=== PATIENT | male | born 1940 | race Caucasian/White ===

== ENCOUNTER 2019-04-29 17:11 | Inpatient (IN) | payer MEDICARE ==
[~2019-04-29] VITALS: Ht 182.9 cm; Wt 72.1 kg
[2019-04-29] MEDS ORDERED: LITHIUM (17:22)
[2019-04-29] MEDS ORDERED: LORAZEPAM (17:22)
[2019-04-29] MEDS ORDERED: DEPAKOTE (17:22)
--- NOTE | 2019-04-29 17:32 | NUR ---
security at bedide for one to one observation.
--- NOTE | 2019-04-29 18:08 | NUR ---
pt refuesed dinner.
--- NOTE | 2019-04-29 18:09 | NUR ---
pt transfered to mhu in stable condition.
--- NOTE | 2019-04-29 18:16 | NUR ---
PT ARRIVE TO UNIT AT THIS TIME ON GURNEY ACCOMPANIED BY ER NURSE. NOTED QUITE MANIC, HYPERVERBAL, RAMBLING, WITH FLIGHT OF IDEAS. PT SPEECH IS PRESSURED AND TANGENTIAL. EASILY IRRITABLE AND AGITATED. REQUIRES FREQUENT REDIRECTION. DENIES PAIN OR DISCOMFORT.
--- NOTE | 2019-04-29 18:20 | NUR ---
CALLED AND SPOKE TO PT'S WITH PT'S PERMISSION. PT CONTINUES TO BE HIGHLY MANIC AND HYPERVERBAL. VERY DISORGANIZED. PT'S STATED THAT HE IS USED TO HEAVY MEDICATIONS, AND HE HAS A HISTORY OF IM MEDICATIONS, AND TO NOT BE SURPRISED IF HIGH DOSES "BARELY TOUCH HIM" DUE TO BUILDING A HIGH TOLERANCE OVER TIME.
[2019-04-29] MEDS ORDERED: MAGNESIUM HYDROXIDE 30 ML LIQUID UDC PO PRN (18:30)
[2019-04-29] MEDS ORDERED: BLOOD SUGAR DIAGNOSTIC 1 EACH STRIP VI ONE (18:30)
[2019-04-29] MEDS ORDERED: ACETAMINOPHEN 325 MG TABLET PO PRN (18:30)
[2019-04-29] MEDS ORDERED: TEMAZEPAM 7.5 MG CAPSULE PO PRN (18:30)
[2019-04-29] MEDS ORDERED: LORAZEPAM 0.5 MG TABLET PO PRN (18:30)
[2019-04-29] MEDS ORDERED: MAG HYDROX/AL HYDROX/SIMETH 30 ML LIQUID UDC PO PRN (18:30)
[2019-04-29 18:35] VITALS: BP 126/77
[2019-04-29 20:39] VITALS: BP 130/75
--- NOTE | 2019-04-29 22:52 | NUR ---
ADMISSION NOTE:PT IS ON 5150 FOR GD.PT WAS RAMBLING AND HARASSING EMPLOYEES AND CUSTOMERS @ A [facility] THEN REFUSED TO LEAVE.HE WAS RIPPING HIS OWN HUNDRED DOLLAR BILLS IN PIECES.HE IS DIAGNOSED BIPOLAR DISODER AND NOT TAKING HIS PRESCRIBED LITHIUM OR DEPAKOTE.HE TALKED AND ACTED IRRATIONALLY AND APPEARED TO BE UNABLE TO MAKE DECISIONS TO CARE FOR HIMSELF.UPONADMISSION,PT WAS ANXIOUS,RESTLESS,SUSPICIOUS,PARANOID, HYPERVERBAL,ANGRY.NEEDY,DEMANDING POOR CONCENTRATION,LABILE AND ATTENTION SEEKING.HE REFUSED TO SIGN ALL ADMIT PAPERS AND/OR TO ANSWER THE QUESTIONS.HE IS ANGRY WITH HIS AND WANTS TO DIVORCE HER,THOUGHT SENT HIM HERE..ACCORDING TO PT,HE CAN'T SEE WELL WITHOUT EYEGLASSES AND SLEEP APNEA WHICH ALL HE NEED IS JUST 2 PILLOWS TO KEEP HEAD UP AND,NO NEED FOR THE MACHINE DENIES PAIN/SI/HI/A&V H.WILL CONTINUE TO MONITOR
[2019-04-30 07:50] VITALS: BP 113/63
[2019-04-30] MEDS ORDERED: HALOPERIDOL LACTATE 5 MG/1 ML VIAL IM ONE (11:45)
[2019-04-30] MEDS ORDERED: diphenhydrAMINE 50 MG/1 ML VIAL IM ONE (11:45)
[2019-04-30] MEDS ORDERED: LORAZEPAM 2 MG/1 ML VIAL IM ONE (11:45)
--- NOTE | 2019-04-30 11:50 | NUR ---
PT NOTED TO BE HIGHLY AGITATED, RESTLESS, AND IRRITABLE WHILE PSYCHIATRIST PERFORMING HIS ASSESSMENT. PT IS EXTREMELY MANIC, HYPERVERBAL, AND UNREDIRECTABLE. INTRUSIVE WITH PSYCHIATRIST, ESCALATING AND RAISING HIS VOICE, POSTURING TOWARDS STAFF. DR. TOTH ORDERED IM MEDICATIONS. ORDERED AND WILL CARRY OUT. SECURITY CALLED AND IS IN UNIT.
[2019-04-30] MEDS ORDERED: TEMAZEPAM 15 MG CAPSULE PO PRN (12:45)
[2019-04-30] MEDS ORDERED: LORAZEPAM 1 MG TABLET PO PRN (12:45)
[2019-04-30] MEDS ORDERED: TEMAZEPAM 7.5 MG CAPSULE PO PRN (12:45)
[2019-04-30] MEDS: OLANZAPINE ZYDIS 5 MG TAB.RAPDIS PO SCH ×2 (13:00→16:41)
[2019-04-30] MEDS ORDERED: LORAZEPAM 0.5 MG TABLET PO PRN (14:30)
--- NOTE | 2019-04-30 15:26 | NUR ---
PT CONTINUES TO BE HIGHLY MANIC, INTRUSIVE, GRANDIOSE AND DELUSIONAL. STATES HE HAS 10 MILLION DOLLARS TO GIVE AWAY HE PLEASES, AND HE PAYS HIS BUTTONHOLE FACER $2000/HR TO MARILYNN EVERYBODY. PT EXHIBITING BIZARRE BEHAVIORS, WHEN ASKED QUESTIONS, PT DOES NOT RESPOND AND WRITES ANSWERS ON A PIECE OF PAPER. PT QUITE FIXATED AT STAFF AT THIS TIME, FOLLOWS NURSES AROUND, ASKING STAFF MEMBERS FOR THEIR NAMES, THREATENING TO MARILYNN AND "SUBPOENA" STAFF. POOR BOUNDARIES NOTED, FREQUENTLY ATTEMPTS TO OPEN NURSES STATION DOOR AND COME IN. PT FREQUENTLY AT NURSES STATION, MAKING MULTIPLE ARBITRARY REQUESTS. PT HAVING HALLUCINATIONS AT THIS TIME, STATING A WOMAN'S HAND IS TOUCHING HIM MAKING HIM WANT TO THROW UP AND MAKING HIM FEEL WEAK, FREQUENTLY TALKING TO HIMSELF, RAMBLING NONSENSICAL.
--- NOTE | 2019-04-30 16:17 | NUR ---
PT REQUESTS PRODUCT DESIGN SPECIALIST TO CALL HIS MAGALI AND SPEAK TO HER. PRODUCT DESIGN SPECIALIST CALLED PT'S AND SPOKE TO HER. SHE POLITELY DENIES REQUEST TO SPEAK TO PT, DUE TO FEAR THAT SHE WILL AGITATE HIM MORE AT THIS TIME.
--- NOTE | 2019-04-30 16:44 | NUR ---
PT REFUSED ALL PO MEDICATIONS TODAY. STATED "I'M NOT TAKING SHIT FROM ANYBODY. YOU WANT TO GIVE ME MEDICATIONS? GIVE IT TO ME IN A SHOT IN MY ASS." PT REQUESTED ORACLE FUSION CONSULTANT CALL HIS FOR HIM. PT OVERHEARD TALKING TO HIS IN THE HALLWAY, IN QUITE A DEMEANING MANNER, MAKING STATEMENTS SUCH "YOU CHICKENSHIT" "YOU'RE PATHETIC" AND "SHUT UP WHEN I'M TALKING TO YOU."
[2019-04-30 16:46] VITALS: BP 105/64
--- NOTE | 2019-04-30 18:06 | NUR ---
PT NOW REQUESTING STAFF TO "NOT SPEAK TO MY UNDER ANY CIRCUMSTANCES. SHE JUST WANTS TO TALK ABOUT MY HEALTH AND MEDICATIONS, I JUST WANT TO TALK ABOUT LOVE AND CARS." STAFF WITH RESPECT PT'S DECISION AT THIS TIME.
[2019-04-30 20:16] VITALS: BP 98/55
[2019-05-01 07:30] VITALS: BP 106/59
[2019-05-01] MEDS ORDERED: HALOPERIDOL DECANOATE 50 MG/1 ML AMPUL IM ONE (07:30)
[2019-05-01] MEDS: OLANZAPINE ZYDIS 5 MG TAB.RAPDIS PO SCH ×3 (08:10→17:00)
--- NOTE | 2019-05-01 09:00 | NUR ---
Ativan 2 mg as prn ordered, patient refused to take it.
[2019-05-01] MEDS ORDERED: LORAZEPAM 2 MG/1 ML VIAL IM ONE (09:15)
[2019-05-01] MEDS ORDERED: diphenhydrAMINE 50 MG/1 ML VIAL IM ONE (09:15)
[2019-05-01] MEDS ORDERED: HALOPERIDOL LACTATE 5 MG/1 ML VIAL IM ONE (09:15)
--- NOTE | 2019-05-01 09:20 | NUR ---
PATIENT IS INTRUSIVE INCOHERENT ,UNABLE TO REDIRECT , MANIC AND HYPERVERBAL. REFUSED TO TAKE AM MEDICATION . BECOME HIGHLY AGITATED IRRITABLE ESCALATING AND RAISING VOICE ,DR. TOTH MADE AWARE AMD IM MEDICATION ORDERED.
--- NOTE | 2019-05-01 14:03 | NUR ---
GPS: Nursing Notes: Thought Disorder: Patient constantly verbally abusing staff, using profanities toward staff, "Fuck you.. Ismael head, stupid, bastard... Chicken shit...", constantly invading staff personal space, blocking the nursing station door, bumping into staff shoulder, hyperverbal, argumentative, manipulative, verbal abusive toward the psychiatrist, redirected, but resistant with nursing care, unable to formulate a viable plan for self care, "Chicken shit... I have a thousand dollar gum dipper... I am a gum dipper... You are fuck...", continue with treatment plan.
[2019-05-01 15:40] VITALS: BP 110/62
[2019-05-01 20:00] VITALS: BP 96/53
[2019-05-01] MEDS: TEMAZEPAM 15 MG CAPSULE PO PRN ×2 (22:12→23:14)
[2019-05-02 07:30] VITALS: BP 110/75
[2019-05-02] MEDS: OLANZAPINE ZYDIS 5 MG TAB.RAPDIS PO SCH ×3 (08:40→17:05)
[2019-05-02] MEDS: LORAZEPAM 1 MG TABLET PO PRN (13:26)
--- NOTE | 2019-05-02 15:03 | NUR ---
Initial discharge plan Patient currently resides at home with his , Christa [[address] [place] [address] ; [phone]]. Per patient, he would like to return home. Per , she would like patient to return home i a stable condition. Per 's request, oncology social work will refer patient to outpatient psychiatrist for continuing treatment and follow up. conditioning room worker will continue to work with patient, family, and MD to ensure a safe and proper discharge plan.
[2019-05-02 15:10] VITALS: BP 105/61
[2019-05-02 19:47] VITALS: BP 112/65
[2019-05-02] MEDS: TEMAZEPAM 15 MG CAPSULE PO PRN ×2 (21:09→23:20)
--- NOTE | 2019-05-03 05:41 | NUR ---
Patient requested 2 sleeping pills last night. Patient slept 8.30 hours of sleep, and is still asleep. No distress noted during the night.
[2019-05-03 07:30] VITALS: BP 135/71
[2019-05-03] MEDS: OLANZAPINE ZYDIS 5 MG TAB.RAPDIS PO SCH ×3 (08:19→17:00)
[2019-05-03] MEDS ORDERED: diphenhydrAMINE 50 MG/1 ML VIAL IV PRN (12:15)
[2019-05-03] MEDS ORDERED: HALOPERIDOL LACTATE 5 MG/1 ML VIAL IM PRN (12:15)
[2019-05-03] MEDS ORDERED: LORAZEPAM 2 MG/1 ML VIAL IV ONE ×2 (12:15→14:45)
[2019-05-03] MEDS ORDERED: LORAZEPAM 2 MG/1 ML VIAL IV PRN ×2 (12:15→14:45)
--- NOTE | 2019-05-03 12:21 | NUR ---
At this time patient restless agitated, screaming not following commands.
--- NOTE | 2019-05-03 12:34 | NUR ---
Patient medicated as ordered, aggressive, agitated restless.
--- NOTE | 2019-05-03 12:40 | NUR ---
EMERGENCY MEDICATION PATIENT STARTED TO GET HYPERVERBAL, MANIC, AGITATED, STRIKING OUT STAFF, CALLED FOR MEDICATION, PATIENT CONTINUOUSLY THREATENED THE STAFF, WILL CONTINUE TO MONITOR
--- NOTE | 2019-05-03 13:04 | NUR ---
patient remains restless agitated walking to nurses station but mary at this time. Will continue to monitor.
--- NOTE | 2019-05-03 14:26 | NUR ---
Patient remains restless and agitated, aggressive and threatening staff, notified.
[2019-05-03] MEDS ORDERED: OLANZAPINE 10 MG VIAL IM ONE (14:45)
[2019-05-03 16:00] VITALS: BP 114/83
[2019-05-03 20:00] VITALS: BP 90/50
--- NOTE | 2019-05-03 21:23 | NUR ---
Received patient in Chika chair. Calm, oriented to name. b/p noted in the 90s secondary to receiving 2 IM injections on the day shift. Patient is awake, and asking to go to bed. No hostile or aggressive behavior shown. Patient assisted to bathroom, then assisted to bed. Bed alarm on for patients safety. Continuing to monitor during the night. No distress noted at this time.
[2019-05-04] MEDS: TEMAZEPAM 15 MG CAPSULE PO PRN ×2 (00:21→21:06)
--- NOTE | 2019-05-04 00:24 | NUR ---
Patients up in rivera asking for a sleeping pill. Re check of VS are 130/61. Patients gait steady , alert and oriented. Sleeping pill given per request. Continuing to monitor for safety.
--- NOTE | 2019-05-04 05:36 | NUR ---
Patient slept 6.3 hours, and is still asleep. Got up a couple of times to void, then back to bed. Gait became increasingly more steady. No aggression or distress noted during the night. Continuing to monitor for safety.
[2019-05-04 07:30] VITALS: BP 110/65
--- NOTE | 2019-05-04 07:57 | NUR ---
Patient is the chair, calm and cooperative, responds to conversations appropriate. Cont. to monitor and safety
[2019-05-04] MEDS: OLANZAPINE ZYDIS 5 MG TAB.RAPDIS PO SCH ×3 (08:58→17:00)
--- NOTE | 2019-05-04 08:59 | NUR ---
Patient refused am med, stated: "you can give me a shot if u not nice, I dont trust doctors or nurses , they get me worse". Patient is hyperverbal.
--- NOTE | 2019-05-04 15:59 | NUR ---
Patient is still not complient with medications, asked to call patient advocate line and I provided the phone number and called it for him. Patient has delusions and stated that he has envelope with 7000 dollars in it. States that the money better be in there. Also patient is very unhappy and angry because his wants to divorce him. Patient is hyperverbal.
[2019-05-04 16:00] VITALS: BP 126/72
--- NOTE | 2019-05-04 19:39 | NUR ---
PATIENT IS STILL DELUSIONAL , NO COMPLIANT WITH MEDICATIONS. SAFETY MAINTAINED THIS SHIFT
--- NOTE | 2019-05-04 20:00 | NUR ---
Patient received into care in room sitting on bed. Patient is alert/oriented x3 and has no complaints of pain. Patient requested nurse to come back later, as he was talking on the phone and it was a "private conversation." Will continue to monitor.
[2019-05-04 20:35] VITALS: BP 128/66
--- NOTE | 2019-05-04 21:00 | NUR ---
Patient requested Restoril for sleep. Nurse provided requested prescribed medication and patient took it. Patient stated that if the sleeping pill didn't work, he would like the "two pills" that they gave him the other night. Nurse said ok.
--- NOTE | 2019-05-04 22:35 | NUR ---
Patient asked nurse for the additional medication to help him sleep. Nurse advised will wait until 11pm. Patient said okay.
--- NOTE | 2019-05-04 22:55 | NUR ---
Nurse provided patient prescribed lorazepam to assist patient in sleeping but patient refused stating that he had received an additional Restoril the other night when the first one didn't work. Nurse advised unable to give an additional Restoril. Patient refused prescribed lorazepam. Nurse wasted lorazepam with rn charge.
[2019-05-04] MEDS: LORAZEPAM 1 MG TABLET PO PRN (22:58)
--- NOTE | 2019-05-05 00:40 | NUR ---
Patient is requesting the lorazepam now after previously refusing. Patient is provided requested lorazepam and took the medication orally, as prescribed.
[2019-05-05] MEDS ORDERED: LORAZEPAM 2 MG/1 ML VIAL IM ONE (01:15)
[2019-05-05] MEDS ORDERED: diphenhydrAMINE 50 MG/1 ML VIAL IM ONE (01:15)
[2019-05-05] MEDS ORDERED: HALOPERIDOL LACTATE 5 MG/1 ML VIAL IM ONE (01:15)
[2019-05-05] MEDS ORDERED: HALOPERIDOL DECANOATE 50 MG/1 ML AMPUL IM ONE ×2 (01:15→14:00)
--- NOTE | 2019-05-05 01:40 | NUR ---
Patient is increasingly agitated, verbally combative, and attempts to provide a quiet environment in patient's room have been unsuccessful as patient in uncooperative and is not open to redirection. Order for one time IM haloperidol 10mg/lorazepam 2mg/diphenhydramin 50 received and given to patient.
--- NOTE | 2019-05-05 02:15 | NUR ---
Patient is asleep in bed, resting comfortably. There are no s/s of adverse side effects related to IM Haldol/Ativan/Benadryl noted or observed. Will continue to monitor.
--- NOTE | 2019-05-05 05:48 | NUR ---
Patient is sleeping in bed comfortably. All prescribed medications were tolerated well by patient and patient has had no adverse side effects to prescribed medications this shift. All safety and fall precaution measures remain in place.
[2019-05-05] MEDS: OLANZAPINE ZYDIS 5 MG TAB.RAPDIS PO SCH ×3 (09:00→17:00)
--- NOTE | 2019-05-05 20:00 | NUR ---
RECEIVED PATIENT IN HIS ROOM IN BED. HE IS NOTED AWAKE A/O X 2. ABLE TO AMBULATE WITH STEADY GAIT AND ABLE TO MAKE HIS NEEDS KNOWN. PT NOTED HYPERVERBAL, WITH FLIGHT OF IDEAS, TANGENTAL, ARGUMENTATIVE, GRANDIOSE DELUSIONS AND EASILY IRRITABLE. PATIENT STATED, "MY WANTS TO DIVORCE ME, HE WANTS TO SELL THE HOUSE FOR 1/2 A MILLION." HE ALSO STATES, "I AM A VERY SMART PERSON". PT NOTED WITH BRIGHT AFFECT, LABILE. HE IS REASSURED FOR HIS SAFETY. SAFETY AND FALL PRECAUTION IN PLACE. V/S STABLE AT THIS TIME. WILL CONTINUE TO MONITOR.
[2019-05-05 20:39] VITALS: BP 120/64
[2019-05-05] MEDS: TEMAZEPAM 15 MG CAPSULE PO PRN ×2 (21:51→23:02)
--- NOTE | 2019-05-05 21:54 | NUR ---
PATIENT REQUESTED "SLEEPING PILL" TEMAZEPAM 15MG PO PRN WAS GIVEN. WILL CONTINUE TO MONITOR.
[2019-05-06] MEDS: OLANZAPINE ZYDIS 5 MG TAB.RAPDIS PO SCH ×3 (08:20→17:00)
[2019-05-06] MEDS ORDERED: chlorproMAZINE 50 MG/2 ML AMPUL IM ONE (08:30)
--- NOTE | 2019-05-06 09:39 | NUR ---
EMERGENCY MEDICATION PATIENT UNSTEADY AMBULATORY, UNABLE TO REDIRECT, MANIC, HYPERVERBAL, GRANDIOSE, VERBALLY ABUSIVE, SEEN ON ANOTHER PATIENTS BED, PATIENT REFUSE TO GO TO HIS BED, ARGUES WITH STAFF, PATIENT REFUSED HIS ORAL MEDICATION AND VERBALIZES THAT HE DOES NOT BELIEVE WITH PSYCHIATRIST AND WONT TAKE ANY MEDICATION, CALLED AND SPOKE WITH PSYCHIATRIST , ORDERS MADE PRN MEDICINE GIVEN ORDERED,
--- NOTE | 2019-05-06 09:44 | NUR ---
PATIENT WAS ON HIS BED, STILL HYPER AND MANIC EVEN AFTER HIS EMERGENCY MEDICINE, ASK MD FOR SITTER, PATIENT REFUSED TO GO TO HIS BED, STEPPED AWAY FROM PATIENT BED ALARM WAS ON, PATIENT WAS FOUND LYING ON FLOOR, DENIES PAIN , PATIENT STILL MANIC, UPON ASSESSMENT NOTED BLOOD ON HIS HEAD AND SEEN 1CM LACERATION, PATIENT WAS SAFELY TRANSFERRED ON JAYA CHAIR, SEEN BY DR. MILLER, AND DR. OSORIO, CT SCAN WAS ORDERED AND 1;1 SITTER FOR SAFETY WILL CONTINUE MONITOR
--- NOTE | 2019-05-06 09:45 | NUR ---
1:[address] Booker. Nursing electrical prospecting supervisor aware. States she will attempt to find appropriate staffing.
[2019-05-06 13:00] VITALS: BP 144/73
--- NOTE | 2019-05-06 13:58 | NUR ---
PATIENT LAY DOWN ON THE FLOOR, ASK TO GET UP AND GO BACK TO BED, PATIENT REFUSE, HYPERVERBAL, ATTENTIONN SEEKING , NEEDY UNABLE TO REDIRECT, CALLED AND SPOKE WITH SPACER TYPE BAR AND SEGMENT ABOUT 1:1 SITTER, SPACER TYPE BAR AND SEGMENT TIAGO SAYS THE SITTER WILL COME AT 3PM, PATIENT WAS LET TO STAY ON THE FLOOR WITH SUPERVISION
--- NOTE | 2019-05-06 14:19 | NUR ---
PATIENT RETURNED TO HIS BED, THROWING HIS FOOD, MILK, BANANA ON THE FLOOR, PATIENT BEEN NEEDY AND ATTENTION SEEKING, HYPERVERBAL , VERBALLY AGGRESIVE, MANIC STILL WAITING FOR 1:1 SITTER
--- NOTE | 2019-05-06 15:30 | NUR ---
PT NOTED TO BE CONTINUOUSLY THROWING HIMSELF ON THE FLOOR, ROLLING AROUND AND CRAWLING ON THE FLOOR. MANIC BEHAVIOR, ATTENTION SEEKING, HYPERVERBAL, VERBALLY ABUSIVE. 1:1 SITTER WITH PT AT THIS TIME. PT STATES STAFF IS NOT GIVING HIM WATER, BUT WHEN GIVING PT A BOTTLE OF WATER, PT THROWS IT AT NURSES REPEATEDLY OR OPENS UP CAP AND SPILLS IT ON THE FLOOR. DIFFICULT TO MANAGE AT THIS TIME. REFUSES TO GO BACK TO BED. STATES "I CAN LAY ON THE FLOOR IF I GOD DAMN PLEASE, AND IF YOU DON'T LIKE, YOU CAN GO TO HELL" PROVIDED PILLOW FOR PT AT THIS TIME.
--- NOTE | 2019-05-06 15:39 | NUR ---
ASSISTED TO BED WITH 4 PERSON ASSIST.
--- NOTE | 2019-05-06 20:00 | NUR ---
RECEIVED PATIENT IN BED. HE IS NOTED AWAKE A/O X 2. HE IS NOTED TAKING TO HIMSELF, ARGUMENTATIVE, EVASIVE, SARCASTIC, GRANDIOSE DELUSION, UPON INTERVIEW, HE STATES, "I HAVE A VERY HIGH IQ". HE ALSO STATES, "I AM NOT BIPOLAR". HE IS NOTED SUSPICIOUS. FOOD WAS OFFERED; HOWEVER, HOWEVER, HE REFUSED, HE STATED, "I AM NOT GOING TO EAT UNTIL MY COURT HEARING". HOWEVER, PATIENT, AGREED TO DRINK WATER. HE IS NOW ON 1:1 SUPERVISION FOR SAFETY, PATIENT UNABLE TO CFS. SAFETY AND FALL PRECAUTION IN PLACE. PATIENT IS REASSURED FOR HIS SAFETY. V/S STABLE AT THIS TIME. WILL CONTINUE TO MONITOR.
[2019-05-06 20:15] VITALS: BP 134/74
--- NOTE | 2019-05-06 21:25 | NUR ---
TEMAZEPAM 15MG PO PRN WAS GIVEN PER PATIENT REQUEST AND NURSING ASSESSMENT.
[2019-05-06] MEDS: TEMAZEPAM 15 MG CAPSULE PO PRN ×2 (21:26→23:32)
[2019-05-07] MEDS ORDERED: chlorproMAZINE 50 MG/2 ML AMPUL IM STA (01:53)
[2019-05-07] MEDS ORDERED: chlorproMAZINE 50 MG/2 ML AMPUL ONE (02:14)
--- NOTE | 2019-05-07 02:25 | NUR ---
CHEMICAL RESTRAINS: PATIENT NOTED HYPERVERBAL, RAPID SPEECH, PACING NERVOUSLY, CONFRONTATIVE, DELUSIONAL, YELLING, UNCOOPERATIVE, UNABLE TO BE REDEIRECTED AND UNABLE TO CFS. DR OSORIO WAS NOTIFY AND NEW TELEPHONE ORDER OBTAINED TO ADMINISTER THORAZINE 100MG IM ONE TIME ORDER. ORDER NOTED AND CARRIED OUT. WILL CONTINUE TO MONITOR.
--- NOTE | 2019-05-07 03:25 | NUR ---
PATIENT NOTED IN BED, LESS ANXIOUS, LESS AGITATED; HOWEVER, HE CONTINUE TALKING TO HIMSELF AND UNABLE TO CFS. SITTER AT BEDSIDE; PT WILL CONTINUE ON 1:1 SUPERVISION FOR SAFETY.
--- NOTE | 2019-05-07 06:31 | NUR ---
PATIENT SLEPT FOR APPROX. 1.30 HRS THROUGH THE NIGHT. HE IS CURRENTLY NOTED SLEEPING COMFORTABLE IN HIS BED. HE CONTINUE ON 1:1 SUPERVISION. WILL CONTINUE TO MONITOR.
--- NOTE | 2019-05-07 07:30 | NUR ---
RECIEVED PT VERY SOUND ASLEEP IN BED. AROUSABLE TO CALL. SITTER AT THE BEDSIDE. NO APPARENT DISTRESS NOTED.
[2019-05-07] MEDS: OLANZAPINE ZYDIS 5 MG TAB.RAPDIS PO SCH ×3 (09:00→17:00)
--- NOTE | 2019-05-07 09:00 | NUR ---
PT IS STILL SO ASLEEP. UNABLE TO GIVE HIS MEDICATION. LOOKING CALM AND COMFORTABLE.
--- NOTE | 2019-05-07 12:30 | NUR ---
AWAKENED PT TO EAT AND HE ATE. PT REFUSED TO TAKE ZYPREXA. TALKNG A LOT AND APPEARED TO BE ANGRY AND SUSPICIOUS.
--- NOTE | 2019-05-07 15:20 | NUR ---
PT IS CATCHING ATTENTIONS AND HI HE THREW HIMSELF ON THE FLOOR. SITTER WITH HIM.
--- NOTE | 2019-05-07 15:35 | NUR ---
PLACED PT BACK TO BED. NO APPARENT DISTRESS NOTED. PT IS VERY UNCOOPERATIVE. STILL REFUSED MEDICATIONS.
[2019-05-07 16:00] VITALS: BP 109/57
[2019-05-07] MEDS: LORAZEPAM 1 MG TABLET PO PRN ×2 (17:00→19:34)
--- NOTE | 2019-05-07 20:00 | NUR ---
RECEIVED PATIENT LYING IN BED. AOX1. HYPERVERBAL AND ATTENTION SEEKING. NO SI/HALLUCINATION OR DELUSION NOTED. VS WNL. DENIES ANY PAIN OR SOB. 1:1 SITTER AT BEDSIDE. CONTINUE TO MONITOR.
[2019-05-07 20:19] VITALS: BP 121/62
[2019-05-07] MEDS: TEMAZEPAM 15 MG CAPSULE PO PRN ×2 (22:03→23:25)
--- NOTE | 2019-05-08 05:52 | NUR ---
PATIENT SLEPT 4.15 HRS LAST NIGHT. STILL ASLEEP AT THIS TIME. WAS GIVEN RESTORIL PRN AND WAS EFFECTIVE AFTER TAKING 2ND DOSE. 1:1 SITTER ON SITE. CONTINUE TO MONITOR.
--- NOTE | 2019-05-08 07:30 | NUR ---
RECIEVED PT SOUND ASLEEP IN BED. EASILY AROUSABLE. SITTER AT THE BEDSIDE.
[2019-05-08] MEDS: OLANZAPINE ZYDIS 5 MG TAB.RAPDIS PO SCH ×4 (09:07→17:38)
--- NOTE | 2019-05-08 09:20 | NUR ---
PT ATE BREAKFAST. REFUSED TO TAKE HIS MORNING MEDS.
[2019-05-08 15:10] VITALS: BP 134/82
--- NOTE | 2019-05-08 16:44 | NUR ---
PT STARTED TO BE AGITATED AND COMBATIVE. FOLLWED DR NAVNEET RAMOS STARTED BEING VERBALLY ABUSIVE AND UNCONTROLLED. DR TOTH ORDERED THORAZINE 100MG IM ANG GIVEN ON THE RIGHT DELTOID AREA WITH ELECTRONIC MUSICAL INSTRUMENT REPAIRER ASSISTANCE. PT IS STILL VERY CONFUSED AND UNCONTROLLED.
[2019-05-08] MEDS ORDERED: chlorproMAZINE 50 MG/2 ML AMPUL IM ONE (16:45)
--- NOTE | 2019-05-08 18:00 | NUR ---
DR TOTH ORDERED ADDITIONA ZYPREXA 15MG IM PT STILL AGITATED. PT TRYING TO THROW HIMSELF DOWN ON THE FLOOR. GIVEN ZYPREXA 15MG IM ON THE RIGHT DELTOID.
[2019-05-08] MEDS: OLANZAPINE 10 MG VIAL IM PRN (18:07)
[2019-05-08 20:00] VITALS: BP 142/77
--- NOTE | 2019-05-08 20:01 | NUR ---
Awake, in bed, talking non sense, uncooperative, sitter at bedside. Will continue to monitor.
[2019-05-08] MEDS: TEMAZEPAM 15 MG CAPSULE PO PRN ×2 (20:53→22:16)
--- NOTE | 2019-05-09 06:40 | NUR ---
Shift End Report: VS stable. Calm and cooperative at the beginning of the shift. No verbal abuse, profane languages, combativeness and agitation until after midnight, starts getting agitated, refused to stay on bed and stayed mostly in his room floor. Several attempts to go back to bed but refused. Able to sleep 4.3 hours only. No fall/injury reported. Sitter remain at bedside.
[2019-05-09 07:30] VITALS: BP 91/54
[2019-05-09] MEDS: OLANZAPINE ZYDIS 5 MG TAB.RAPDIS PO SCH ×2 (08:56→16:18)
[2019-05-09] MEDS: OLANZAPINE 10 MG VIAL IM PRN ×2 (08:58→16:18)
--- NOTE | 2019-05-09 16:55 | NUR ---
RECEIVED PATIENT AOX1, LYING ON BED, PATIENT HYPERVERBAL, MANIC, VERBALLY ABUSIVE, PATIENT ON 1:1 SITTER FOR SAFETY,PATIENT REFUSED ORAL MEDICATION, ON RIESE PROTOCOL, PRN MED GIVEN ORDERED
--- NOTE | 2019-05-09 20:00 | NUR ---
PATIENT AOX1. HYPERVERBAL AND ATTENTION SEEKING. DENIES ANY SI/HALLUCINATION OR DELUSION NOTED. VS WNL. DENIES ANY PAIN. 1:1 SITTER AT BEDSIDE. CONTINUE TO MONITOR.
[2019-05-09 20:13] VITALS: BP 114/64
[2019-05-09] MEDS: TEMAZEPAM 15 MG CAPSULE PO PRN ×2 (21:49→22:51)
--- NOTE | 2019-05-10 06:00 | NUR ---
PATIENT SLEPT 6.0 HRS LAST NIGHT. STILL ASLEEP AT THIS TIME. WAS GIVEN RESTORIL PRN AND WAS EFFECTIVE AFTER TAKING 2ND DOSE. 1:1 SITTER ON SITE. CONTINUE TO MONITOR.
[2019-05-10 07:30] VITALS: BP 107/66
[2019-05-10] MEDS: OLANZAPINE ZYDIS 5 MG TAB.RAPDIS PO SCH ×2 (09:09→16:10)
--- NOTE | 2019-05-10 12:26 | NUR ---
NOTED THAT THE RIGHT SHOULDER SEEMS TO BE RED, AND WARM , PATIENT REFUSED TO HAVE IT ASSESSED EVEN AFTER DISCUSSING THE BENEFIT OF HAVE IT ASSESED, SEEN BY DR. DUNNE, PATIENT CONTINOUSLY REFUSED
[2019-05-10] MEDS ORDERED: LITHIUM CARBONATE 300 MG TABLET.SA PO STA (14:00)
[2019-05-10] MEDS ORDERED: LITHIUM CARBONATE 300 MG CAPSULE PO SCH ×2 (15:10→21:00)
[2019-05-10 16:00] VITALS: BP 134/71
--- NOTE | 2019-05-10 16:57 | NUR ---
PATIENT BEEN COMPLIANT WITH ZYPREXA AND HIS LITHIUM,STILL SHOWS MANIC AND HYPERVERBAL, HOWEVER MORE REDIRECTABLE BEFORE, PATIENT STILL REFUSE TO HAVE HIS SHOULDER TO BE CHAECKED
--- NOTE | 2019-05-10 19:45 | NUR ---
Received patient in bed with 1:1 sitter at bedside. Patient is A/Ox1. Calm at this time. Hyperverbal. Denies any pain.
[2019-05-10] MEDS: LITHIUM CARBONATE 300 MG CAPSULE PO SCH (21:14)
[2019-05-10 21:38] VITALS: BP 107/74
[2019-05-10] MEDS: TEMAZEPAM 15 MG CAPSULE PO PRN ×2 (22:19→23:22)
--- NOTE | 2019-05-10 22:30 | NUR ---
FARZAD NOTE : 1:1 MACHELLETER/ this senior copywriter was assigned to this pt to do 1:1, for safety. initially, he was calm, and appropriate. he even took a nap for a while. since 2129, he has been escalating in his behavior. he is manic and hyperverbal. paranoid, stating staff and MD are conspiring to keep him in the hospital, to "get my 10 million dollars". he is repetitive, stating the same things over and over. is verbally abusive, and threw water all over the floor. is now pacing the hallway, and difficult to redirect. due to patients aggression towards me, and attempts to split staff, i have been reassigned to another patient, and another staff is to monitor patient, for the remainder of the shift.
--- NOTE | 2019-05-10 23:32 | NUR ---
Patient is more calm at this time. Able to redirect. 1 dose of Restoril was given, but after an hour was not effective. Gave 1 more dose as ordered. Will continue to monitor.
[2019-05-11] MEDS: LORAZEPAM 1 MG TABLET PO PRN (00:28)
--- NOTE | 2019-05-11 00:40 | NUR ---
Second dose of Restoril was not effective. Patient becoming agitated stating that he can't fall asleep and that he has a hearing tomorrow. Becoming anxious. Administered PRN Ativan. Will continue to monitor.
--- NOTE | 2019-05-11 06:48 | NUR ---
Patient left to court with EMT in stable condition. Addendum: 05/11/19 at 702 by BIB HERNANDEZ RN Patient left to court at 700 with EMT via shin in stable condition with 2 sitter accompanying.
--- NOTE | 2019-05-11 07:30 | NUR ---
RECIEVED REPORT, PT NOT IN THE ROOM. PT IS OUT FOR A COURT HEARING.
[2019-05-11] MEDS: LITHIUM CARBONATE 300 MG CAPSULE PO SCH (09:00)
[2019-05-11] MEDS: OLANZAPINE ZYDIS 5 MG TAB.RAPDIS PO SCH (09:00)
[2019-05-11] MEDS ORDERED: LITHIUM CARBONATE 300 MG CAPSULE PO SCH (13:00)
--- NOTE | 2019-05-11 13:00 | NUR ---
PT IS BACK FROM THE COURT HEARING WITH 2 SITTERS DROP CREW LABORER. THE DEMURRAGE CLERK APPROVED PT'S PLEAD FOR DISCHARGE. PT IS TOO TIRED AND HAS FALLEN TO SLEEP WELL.
--- NOTE | 2019-05-11 14:33 | NUR ---
Discharge note Patient will be discharged today back home [[address] [address]; [phone]]. The patient had his Writ of [place] (Writ) hearing today and was released by the court. Patient is alert and oriented x4, denies suicidal or homicidal ideation, and is aware and agreeable with discharge plans. Patient�s , Christa Hamomnds [[phone]] is aware and agreeable with discharge plans and has agreed to provide transportation for the patient back home, and will be picking up the patient between 3-4pm today. Patient will continue to follow-up with his Psychiatrist, Dr. Regis Birch [Address: [address] [place] [id number]; ] with a follow up appointment scheduled on Thursday May 16, 2019 ay 10:00am. Patient was provided with outpatient mental health resources to [facility] , and the National Suicide Prevention Lifeline .
--- NOTE | 2019-05-11 15:00 | NUR ---
IN THE ROOM. DISCHARGE INSTRUCTIONS GIVEN TO PT AND WITH GOOD UNDERSTANDING. BELONGINGS AND VALUABLES GIVEN AND ACKNOWLEDGE BY THE . PRESCRIPTION IS BEING CALLED TO THE PT'S PAHARMACY.
--- NOTE | 2019-05-11 16:00 | NUR ---
PT IS DISCHARGED VIA W/C ACCOMPANIED BY HIS CONDITION IS STABLE.
== END 2019-05-11 16:00 | disposition home or self-care (01) | DRG 885 ==
LOC: ER 17:11 → GPS 18:07
PROVIDERS: ADMIT Psychiatry & Neurology Psychiatry; ATTEND Nurse Practitioner Acute Care
DX: F31.2 Bipolar disorder, current episode manic severe with psychotic features (principal); Z85.46 Personal history of malignant neoplasm of prostate; Z91.19 Patient's noncompliance with other medical treatment and regimen; S01.01XA Laceration without foreign body of scalp, initial encounter; W18.30XA Fall on same level, unspecified, initial encounter; Y92.230 Patient room in hospital as the place of occurrence of the external cause; I67.2 Cerebral atherosclerosis; G93.0 Cerebral cysts; Z91.14 Patient's other noncompliance with medication regimen
CPT/HCPCS: 70450; A4663; J1200; J1630; J1631; J2060; J2358; J3230; J8499